=== PATIENT | male | born 1960 | race Caucasian/White ===

== ENCOUNTER 2022-09-01 04:06 | Day surgery (SDC) | payer OTHER ==
[2022-08-28 16:47] VITALS: BMI 26.6
[2022-09-01 09:13] VITALS: RESP 20
[2022-09-01] MEDS ORDERED: ONDANSETRON 4 MG/2 ML VIAL ONE (10:49)
[2022-09-01] MEDS ORDERED: MIDAZOLAM HCL 2 MG/2 ML SINGLE DOSE VIAL ONE (10:49)
[2022-09-01 14:09] VITALS: TEMP 98.1
[2022-09-01 14:17] VITALS: BP 128/71; PULSE 64
== END 2022-09-01 12:04 | disposition home or self-care (01) ==
LOC: JASU-SURG 04:06
PROVIDERS: ATTEND Urology
PROC: 0TF3XZZ Fragmentation in Right Kidney Pelvis, External Approach (ICD-10-PCS; principal; 2022-09-01 11:00)
DX: N20.0 Calculus of kidney (principal)
CPT/HCPCS: 82962